=== PATIENT | female | born 1935 | race Native Hawaiian/Other Pacific Islander ===

== ENCOUNTER → 2016-12-03 | Outpatient (CLI) | payer MEDICARE, OTHER | END | disposition home or self-care (01) | LOC: LAB.O 09:04 | PROVIDERS: ATTEND Internal Medicine Gastroenterology | DX: R63.4 Abnormal weight loss (principal); R19.7 Diarrhea, unspecified ==

== ENCOUNTER → 2017-02-12 | Outpatient (CLI) | payer MEDICARE, OTHER | END | disposition home or self-care (01) | LOC: LAB.O 12:21 | DX: K51.90 Ulcerative colitis, unspecified, without complications (principal) ==

== ENCOUNTER → 2017-04-07 | Outpatient (CLI) | payer MEDICARE, OTHER ==
--- NOTE | 2017-04-23 10:13 | MAM ---
EXAM DESCRIPTION: 3D Screening BILATERAL : Digital Mammography. CLINICAL HISTORY: 81 years Female SCREENING . No complaints. No family history of breast cancer. Postmenopausal. No HRT. COMPARISON: Available at this time.. No prior reports available. TECHNIQUE: Bilateral CC and MLO projection full-field images, 3-D tomosynthesis digital mammographic technique. Also bilateral synthesized CC/ MLO full-field images. CAD not utilized. FINDINGS: The breast parenchymal density pattern is: Scattered areas of fibroglandular density. No skin thickening or nipple retraction bilateral solitary microcalcifications. Bilateral vascular calcifications. Anterior left breast coarse calcification. Intramammary lymph node axillary left breast. Focal asymmetry in the 900 clock position of the posterior third of the right breast approximately 5.5 cm from the nipple. Tissues more dense than the surrounding fibroglandular tissues. No associated microcalcifications. Focal asymmetry versus mass density at the 300 clock position of the middle third of the left breast approximately 4 cm from the nipple. No associated microcalcifications. More dense than the surrounding fibroglandular tissues. No suspicious microcalcifications bilaterally. IMPRESSION: BI-RADS CATEGORY: 0 - INCOMPLETE- Need additional imaging evaluation. FOLLOW-UP: Recall for additional imaging: Bilateral 2-D full-field CC images and lateral full-field 3-D Dania and synthesis images in the LM projection. Targeted ultrasound bilateral breasts.. Written communication concerning the IMPRESSION and Follow-up, will be mailed to the patient and referring health care provider. Electronically signed by: Quentin Hanley MD 04/23/2017 10:12 AM GENERAL MEDICAL PRACTITIONER
== END ==
LOC: MAMMO 14:47
PROVIDERS: ATTEND Family Medicine
DX: Z12.31 Encounter for screening mammogram for malignant neoplasm of breast (principal)
CPT/HCPCS: 77063; G0202

== ENCOUNTER → 2017-06-02 | Outpatient (CLI) | payer MEDICARE, OTHER | LOC: LAB.O 05-28 16:10 | PROVIDERS: ATTEND Internal Medicine Gastroenterology | DX: K51.919 Ulcerative colitis, unspecified with unspecified complications (principal); R19.7 Diarrhea, unspecified ==

== ENCOUNTER → 2017-08-26 | Outpatient (CLI) | payer MEDICARE, OTHER | LOC: BFHH 15:42 | PROVIDERS: ATTEND Family Medicine | DX: K51.012 Ulcerative (chronic) pancolitis with intestinal obstruction (principal); N39.0 Urinary tract infection, site not specified; R63.1 Polydipsia; E03.9 Hypothyroidism, unspecified; R73.03 Prediabetes; Z13.1 Encounter for screening for diabetes mellitus ==

== ENCOUNTER → 2018-08-05 | Outpatient (CLI) | payer MEDICARE, OTHER ==
[~2018-08-05] MED LIST: IPRATROPIUM/ALBUTEROL 3 ML VIAL NEB ONE
--- NOTE | 2018-08-06 08:52 | CT ---
Procedure: CT CHEST WITHOUT IV CONTRAST Exam Date: 08/05/2018 Ordering Provider: NARA SENIOR Clinical Indication: COUGH Comparison: 04/12/2016 CT chest TECHNIQUE: 2.5 mm images were taken through the chest without intravenous contrast material. Coronal and sagittal reformatted images were generated. This exam was performed according to our departmental dose optimization program which includes use of automated exposure control, adjustment of the mA and/or kV according to patient size and/or use of iterative reconstruction technique. FINDINGS: Lungs and large airways: Lungs are hyperinflated. Central airways are patent. No focal lung consolidation. No suspicious lung lesions. Scarring in the lingula and both lower lobes. Subcentimeter calcified granuloma in the left upper and right lower lobes. Pleura: No pleural effusion. No pneumothorax. Mediastinum and kaiser: No lymphadenopathy. Heart and great vessels: The heart is not enlarged. No pericardial effusion. No aortic aneurysm. Aortic and coronary artery calcifications. Chest wall, lower neck, axillae: No axillary lymphadenopathy. Upper abdomen: Nonacute Bones: No destructive bony lesions. Diffuse demineralization of the bones. Remote right-sided rib fractures. IMPRESSION: 1. No acute abnormality in the chest. 2. COPD. Electronically signed by: Joshua Magana MD 08/06/2018 8:48 AM CDT
== END ==
LOC: RESP 14:30
PROVIDERS: ATTEND Internal Medicine Critical Care Medicine
DX: J44.9 Chronic obstructive pulmonary disease, unspecified (principal)
CPT/HCPCS: 71250; 94060; J7620